=== PATIENT | male | born 1935 | race Native Hawaiian/Other Pacific Islander ===

== ENCOUNTER 2019-10-13 12:10 | Inpatient (IN) | payer MEDICAID, MEDICARE, OTHER ==
[~2019-10-13] VITALS: Ht 165.1 cm; Wt 58.0 kg
[~2019-10-13 12:10] MED LIST: AMLO1TAB12 PO; ATOR40TA28 PO; LORA10TA7 PO; TAMS-13 PO
[2019-10-13] MEDS ORDERED: ALBUTEROL SULFATE 5 MG/ML 20 ML NEB SOLN [BULK] NEB ONE ×2 (12:45→15:30)
[2019-10-13] MEDS ORDERED: MethylPREDNISolone SOD SUCC 125 MG/2 ML VIAL IVP ONE ×2 (12:45→20:45)
[2019-10-13] MEDS ORDERED: IPRATROPIUM BROMIDE 0.5 MG/2.5 ML NEB SOLUTION NEB ONE ×3 (12:45→20:45)
[2019-10-13] MEDS ORDERED: PredniSONE 20 MG TABLET PO ONE (12:45)
[2019-10-13] MEDS ORDERED: 0.9% SODIUM CHLORIDE 5 ML NEB SOLUTION NEB ONE ×2 (12:54→16:11)
[2019-10-13 16:52] LABS: BASOPHILS % (AUTO) 0.9 % (0.0-2.0); EOSINOPHILS % (AUTO) 3.1 % (1.0-6.0); HEMATOCRIT 43.4 % (41-53); HEMOGLOBIN 14.6 g/dL (13.5-17.5); LYMPHOCYTES # (AUTO) 0.8 K/uL (1.0-4.8); LYMPHOCYTES % (AUTO) 12.2 % (22.0-44.0); MEAN CORPUSCULAR HEMOGLOBIN 31.2 pg (26.0-34.0); MEAN CORPUSCULAR HGB CONC 33.5 G/dL (31.0-37.0); MEAN CORPUSCULAR VOLUME 93 fL (80-100); MONOCYTES # (AUTO) 0.4 K/uL (0.1-1.0); MONOCYTES % (AUTO) 6.5 % (2.0-9.0); NEUTROPHILS # (AUTO) 4.9 K/uL (1.8-7.7); NEUTROPHILS % (AUTO) 77.3 % (40.0-70.0); PLATELET COUNT (AUTO) 369 K/uL (150-450); RED BLOOD CELL COUNT(AUTO) 4.67 MIL/uL (4.50-5.90); RED CELL DISTRIBUTION WIDTH 13.3 % (11.5-14.5)
[2019-10-13 17:04] LABS: PROTHROMBIN TIME 10.2 SEC (9.4-11.6)
[2019-10-13 17:05] LABS: CALCIUM, TOTAL 9.7 mg/dL (8.8-10.5); CREATININE 1.16 mg/dL (0.60-1.30)
[2019-10-13 17:12] LABS: ALBUMIN 4.2 g/dL (3.4-5.0); BILIRUBIN,TOTAL 0.5 mg/dL (0.1-1.0); TOTAL PROTEIN, SERUM 7.5 g/dL (6.4-8.2)
[2019-10-13] MEDS ORDERED: POTASSIUM CHLORIDE 20 MEQ ER TABLET PO ONE (17:45)
[2019-10-13] MEDS ORDERED: ONDANSETRON HCL 4 MG/2 ML VIAL IVP PRN ×2 (18:30→21:00)
[2019-10-13] MEDS ORDERED: ACETAMINOPHEN 325 MG TABLET PO PRN ×2 (18:30→21:00)
[2019-10-13] MEDS ORDERED: 0.9% SODIUM CHLORIDE 10 ML SYRINGE IVP PRN ×2 (18:30→21:00)
[2019-10-13] MEDS ORDERED: ALBUTEROL SULFATE 2.5 MG/0.5 ML NEB SOLUTION NEB SCH (19:00)
[2019-10-13] MEDS ORDERED: IPRATROPIUM BROMIDE 0.5 MG/2.5 ML NEB SOLUTION NEB SCH (19:00)
[2019-10-13] MEDS ORDERED: ALBUTEROL SULFATE 2.5 MG/0.5 ML NEB SOLUTION NEB ONE (20:45)
[2019-10-13] MEDS ORDERED: MAGNESIUM HYDROXIDE SUSPENSION 30 ML UDCUP PO PRN (21:00)
[2019-10-13] MEDS: DOCUSATE SODIUM 100 MG CAPSULE PO SCH (21:00)
[2019-10-13] MEDS ORDERED: OxyCODONE HCL/ACETAMINOPHEN 5-325 MG TABLET PO PRN ×2 (21:00)
[2019-10-13] MEDS ORDERED: POTASSIUM CHLORIDE 20 MEQ ER TABLET PO PRN (21:15)
[2019-10-13] MEDS ORDERED: ALBUTEROL SULFATE 2.5 MG/0.5 ML NEB SOLUTION NEB PRN (21:15)
[2019-10-13 23:01] VITALS: BP 129/69
[2019-10-14] MEDS: POTASSIUM CHL 10 MEQ/WATER 50 ML IV PRN ×3 (01:26→04:02)
[2019-10-14] MEDS: ALBUTEROL SULFATE 2.5 MG/0.5 ML NEB SOLUTION NEB SCH ×4 (02:33→20:00)
[2019-10-14] MEDS: IPRATROPIUM BROMIDE 0.5 MG/2.5 ML NEB SOLUTION NEB SCH ×4 (02:33→20:00)
[2019-10-14 04:31] VITALS: BP 139/72
[2019-10-14 08:29] VITALS: BP 127/68
[2019-10-14] MEDS ORDERED: MethylPREDNISolone SOD SUCC 125 MG/2 ML VIAL IVP SCH (09:00)
[2019-10-14] MEDS ORDERED: [UNRECOGNIZED DRUG - OTHER] PO SCH (09:00)
[2019-10-14] MEDS ORDERED: LORATADINE 10 MG TABLET PO SCH (09:00)
[2019-10-14] MEDS: DOCUSATE SODIUM 100 MG CAPSULE PO SCH ×2 (09:00→21:00)
[2019-10-14] MEDS: ATORVASTATIN CALCIUM 40 MG TABLET PO SCH (09:28)
[2019-10-14] MEDS: AmLODIPine BESYLATE 5 MG TABLET PO SCH (09:28)
[2019-10-14] MEDS: VALSARTAN 80 MG TABLET PO SCH (09:28)
[2019-10-14] MEDS: TAMSULOSIN HCL 0.4 MG CAPSULE PO SCH (09:28)
[2019-10-14] MEDS: FAMOTIDINE 10 MG/ML 2 ML VIAL IVP SCH (09:28)
[2019-10-14] MEDS: MONTELUKAST SODIUM 10 MG TABLET PO SCH (11:40)
[2019-10-14 11:49] LABS: BASOPHILS % (AUTO) 0.2 % (0.0-2.0); EOSINOPHILS % (AUTO) 0 % (1.0-6.0); HEMATOCRIT 42.8 % (41-53); HEMOGLOBIN 14.2 g/dL (13.5-17.5); LYMPHOCYTES # (AUTO) 0.2 K/uL (1.0-4.8); LYMPHOCYTES % (AUTO) 4.4 % (22.0-44.0); MEAN CORPUSCULAR HGB CONC 33.3 G/dL (31.0-37.0); MEAN CORPUSCULAR VOLUME 93 fL (80-100); MONOCYTES % (AUTO) 0.6 % (2.0-9.0); NEUTROPHILS # (AUTO) 5.3 K/uL (1.8-7.7); PLATELET COUNT (AUTO) 369 K/uL (150-450); RED CELL DISTRIBUTION WIDTH 13.3 % (11.5-14.5)
[2019-10-14 11:51] LABS: NEUTROPHILS % (AUTO) 94.8 % (40.0-70.0)
[2019-10-14 12:09] VITALS: BP 136/62
[2019-10-14 12:15] LABS: ALANINE AMINOTRANSFERASE 27 U/L (12-78); ALBUMIN 3.8 g/dL (3.4-5.0); ALKALINE PHOSPHATASE 71 U/L (46-116); ANION GAP 10 mmol/L (8-16); ASPARTATE AMINOTRANSFERASE 24 U/L (15-37); CALCIUM, TOTAL 9.6 mg/dL (8.8-10.5); CARBON DIOXIDE 24 mmol/L (22-29); CHLORIDE 104 mmol/L (98-107); CREATININE 0.99 mg/dL (0.60-1.30); GLOMERULAR FILTR. RATE CALC > 60 mL/min (>60); GLUCOSE,RANDOM 142 mg/dL (70-110); POTASSIUM 4.4 mmol/L (3.5-5.1); SODIUM SERUM 138 mmol/L (136-145); TOTAL PROTEIN, SERUM 7.1 g/dL (6.4-8.2); UREA NITROGEN, BLOOD 12 mg/dL (7-18)
[2019-10-14 12:37] LABS: BILIRUBIN,TOTAL 0.3 mg/dL (0.1-1.0)
[2019-10-14] MEDS: MethylPREDNISolone SOD SUCC 125 MG/2 ML VIAL IVP SCH ×2 (14:35→19:30)
[2019-10-14 15:13] VITALS: BP 119/65
[2019-10-14] MEDS: BENZONATATE 100 MG CAPSULE PO SCH (16:39)
[2019-10-14 19:58] VITALS: BP 123/66
[2019-10-14] MEDS: HEPARIN SODIUM,PORCINE 5,000 UNITS/ML VIAL SQ SCH (21:00)
[2019-10-14] MEDS: BUDESONIDE 0.5 MG/2 ML NEB SOLUTION NEB SCH (21:00)
[2019-10-14 23:44] VITALS: BP 134/66
[2019-10-15] MEDS: ALBUTEROL SULFATE 2.5 MG/0.5 ML NEB SOLUTION NEB SCH ×4 (02:00→19:25)
[2019-10-15] MEDS: IPRATROPIUM BROMIDE 0.5 MG/2.5 ML NEB SOLUTION NEB SCH ×4 (02:00→19:25)
[2019-10-15] MEDS: MethylPREDNISolone SOD SUCC 125 MG/2 ML VIAL IVP SCH ×6 (06:00→20:55)
[2019-10-15] MEDS: ATORVASTATIN CALCIUM 40 MG TABLET PO SCH (09:00)
[2019-10-15] MEDS: AmLODIPine BESYLATE 5 MG TABLET PO SCH (09:05)
[2019-10-15] MEDS: VALSARTAN 80 MG TABLET PO SCH (09:05)
[2019-10-15] MEDS: FAMOTIDINE 10 MG/ML 2 ML VIAL IVP SCH (09:06)
[2019-10-15] MEDS: DOCUSATE SODIUM 100 MG CAPSULE PO SCH ×2 (09:06→20:10)
[2019-10-15] MEDS: TAMSULOSIN HCL 0.4 MG CAPSULE PO SCH ×2 (09:07→09:23)
[2019-10-15] MEDS: MONTELUKAST SODIUM 10 MG TABLET PO SCH (09:08)
[2019-10-15] MEDS: HEPARIN SODIUM,PORCINE 5,000 UNITS/ML VIAL SQ SCH ×2 (09:21→20:15)
[2019-10-15] MEDS: BENZONATATE 100 MG CAPSULE PO SCH ×4 (09:25→20:55)
[2019-10-15] MEDS: BUDESONIDE 0.5 MG/2 ML NEB SOLUTION NEB SCH ×2 (09:56→19:25)
[2019-10-15 11:40] VITALS: BP 108/64
[2019-10-15 12:43] LABS: APPEARANCE,URINE CLEAR (CLEAR); BILIRUBIN,URINE NEGATIVE (NEGATIVE); GLUCOSE, URINE (UA) NEGATIVE (NEGATIVE); KETONES,URINE NEGATIVE (NEGATIVE); LEUKOCYTE ESTERASE ,URINE NEGATIVE (NEGATIVE); NITRATE,URINE NEGATIVE (NEGATIVE); OCCULT BLOOD,URINE NEGATIVE (NEGATIVE); PROTEIN,URINE NEGATIVE (NEGATIVE); UROBILINOGEN,URINE 0.2 mg/dL (<=1.0)
[2019-10-15 15:36] VITALS: BP 117/71
[2019-10-15 19:48] VITALS: BP 131/60
[2019-10-16] MEDS: IPRATROPIUM BROMIDE 0.5 MG/2.5 ML NEB SOLUTION NEB SCH ×4 (02:00→20:41)
[2019-10-16] MEDS: ALBUTEROL SULFATE 2.5 MG/0.5 ML NEB SOLUTION NEB SCH ×4 (02:00→20:41)
[2019-10-16] MEDS: MethylPREDNISolone SOD SUCC 125 MG/2 ML VIAL IVP SCH ×4 (06:40→20:57)
[2019-10-16 07:46] VITALS: BP 113/70
[2019-10-16] MEDS: VALSARTAN 80 MG TABLET PO SCH (08:45)
[2019-10-16] MEDS: FAMOTIDINE 10 MG/ML 2 ML VIAL IVP SCH (08:46)
[2019-10-16] MEDS: DOCUSATE SODIUM 100 MG CAPSULE PO SCH ×2 (08:46→19:43)
[2019-10-16] MEDS: HEPARIN SODIUM,PORCINE 5,000 UNITS/ML VIAL SQ SCH ×2 (08:46→19:43)
[2019-10-16] MEDS: MONTELUKAST SODIUM 10 MG TABLET PO SCH (08:46)
[2019-10-16] MEDS: BENZONATATE 100 MG CAPSULE PO SCH ×3 (08:46→20:57)
[2019-10-16] MEDS: TAMSULOSIN HCL 0.4 MG CAPSULE PO SCH (08:46)
[2019-10-16] MEDS: ATORVASTATIN CALCIUM 40 MG TABLET PO SCH (08:46)
[2019-10-16] MEDS: AmLODIPine BESYLATE 5 MG TABLET PO SCH (08:46)
[2019-10-16] MEDS: BUDESONIDE 0.5 MG/2 ML NEB SOLUTION NEB SCH ×2 (08:53→20:41)
[2019-10-16 11:59] VITALS: BP 125/56
[2019-10-16 16:27] VITALS: BP 115/62
[2019-10-16 19:29] VITALS: BP 130/69
[2019-10-17] MEDS: ALBUTEROL SULFATE 2.5 MG/0.5 ML NEB SOLUTION NEB SCH ×2 (02:00→10:00)
[2019-10-17] MEDS: IPRATROPIUM BROMIDE 0.5 MG/2.5 ML NEB SOLUTION NEB SCH ×2 (02:00→10:00)
[2019-10-17] MEDS: MethylPREDNISolone SOD SUCC 125 MG/2 ML VIAL IVP SCH (06:45)
[2019-10-17 07:27] VITALS: BP 128/77
[2019-10-17] MEDS: ATORVASTATIN CALCIUM 40 MG TABLET PO SCH (08:48)
[2019-10-17] MEDS: BENZONATATE 100 MG CAPSULE PO SCH (08:48)
[2019-10-17] MEDS: AmLODIPine BESYLATE 5 MG TABLET PO SCH (08:48)
[2019-10-17] MEDS: VALSARTAN 80 MG TABLET PO SCH (08:48)
[2019-10-17] MEDS: TAMSULOSIN HCL 0.4 MG CAPSULE PO SCH (08:48)
[2019-10-17] MEDS: FAMOTIDINE 10 MG/ML 2 ML VIAL IVP SCH (08:48)
[2019-10-17] MEDS: MONTELUKAST SODIUM 10 MG TABLET PO SCH (08:48)
[2019-10-17] MEDS: HEPARIN SODIUM,PORCINE 5,000 UNITS/ML VIAL SQ SCH (08:49)
[2019-10-17] MEDS: DOCUSATE SODIUM 100 MG CAPSULE PO SCH (08:49)
[2019-10-17] MEDS: BUDESONIDE 0.5 MG/2 ML NEB SOLUTION NEB SCH (10:00)
[2019-10-17] MEDS ORDERED: PRED20 PO ×2 (10:40→10:41)
[2019-10-17] MEDS ORDERED: PRED10 PO (10:41)
== END 2019-10-17 11:10 | disposition home or self-care (01) | DRG 189 ==
LOC: EMS 12:14 → 5S 19:54
PROVIDERS: ADMIT Internal Medicine; ATTEND Internal Medicine
DX: J96.21 Acute and chronic respiratory failure with hypoxia (principal); J45.901 Unspecified asthma with (acute) exacerbation; Z53.20 Procedure and treatment not carried out because of patient's decision for unspecified reasons; E78.00 Pure hypercholesterolemia, unspecified; E78.5 Hyperlipidemia, unspecified; I10 Essential (primary) hypertension; N40.0 Benign prostatic hyperplasia without lower urinary tract symptoms; Z82.49 Family history of ischemic heart disease and other diseases of the circulatory system; Z83.3 Family history of diabetes mellitus; Z87.891 Personal history of nicotine dependence; Z99.81 Dependence on supplemental oxygen
CPT/HCPCS: 84132; 93005; 94060; 94640; 94644; 94645; 94660; 99291; J1644; J2930; J3480; J3490

== ENCOUNTER 2019-12-09 20:48 | Emergency (ER) | payer MEDICARE, MEDICAID ==
[~2019-12-09] VITALS: Ht 165.1 cm; Wt 64.0 kg
[~2019-12-09 20:48] MED LIST changes: -LORA10TA7 PO; +PRED10 PO; +PRED20 PO
[2019-12-09] MEDS ORDERED: 0.9% SODIUM CHLORIDE 5 ML NEB SOLUTION NEB ONE ×2 (20:51→21:58)
[2019-12-09] MEDS ORDERED: ALBUTEROL SULFATE 5 MG/ML 20 ML NEB SOLN [BULK] NEB ONE ×2 (21:00→22:00)
[2019-12-09] MEDS ORDERED: IPRATROPIUM BROMIDE 0.5 MG/2.5 ML NEB SOLUTION NEB ONE (21:00)
[2019-12-09] MEDS ORDERED: ACETAMINOPHEN 325 MG TABLET PO PRN (21:45)
[2019-12-09] MEDS ORDERED: MethylPREDNISolone SOD SUCC 125 MG/2 ML VIAL IVP ONE (21:45)
[2019-12-09] MEDS ORDERED: FUROSEMIDE 40 MG/4 ML VIAL IVP ONE (22:00)
[2019-12-09] MEDS ORDERED: AZITHROMYCIN 500 MG/NS 250 ML IV SCH (22:00)
[2019-12-09 22:01] LABS: BASOPHILS % (AUTO) 0.6 % (0.0-2.0); EOSINOPHILS % (AUTO) 6.9 % (1.0-6.0); HEMATOCRIT 40.3 % (41-53); HEMOGLOBIN 13.6 g/dL (13.5-17.5); LYMPHOCYTES % (AUTO) 9.3 % (22.0-44.0); MEAN CORPUSCULAR HEMOGLOBIN 31.4 pg (26.0-34.0); MEAN CORPUSCULAR HGB CONC 33.8 G/dL (31.0-37.0); MEAN CORPUSCULAR VOLUME 93 fL (80-100); MONOCYTES # (AUTO) 0.6 K/uL (0.1-1.0); MONOCYTES % (AUTO) 5.6 % (2.0-9.0); NEUTROPHILS # (AUTO) 7.9 K/uL (1.8-7.7); NEUTROPHILS % (AUTO) 77.6 % (40.0-70.0); PLATELET COUNT (AUTO) 322 K/uL (150-450); RED BLOOD CELL COUNT(AUTO) 4.34 MIL/uL (4.50-5.90); RED CELL DISTRIBUTION WIDTH 13.6 % (11.5-14.5)
[2019-12-09 22:18] LABS: ALANINE AMINOTRANSFERASE 32 U/L (12-78); ALBUMIN 3.9 g/dL (3.4-5.0); ALKALINE PHOSPHATASE 87 U/L (46-116); ANION GAP 10 mmol/L (8-16); ASPARTATE AMINOTRANSFERASE 28 U/L (15-37); BILIRUBIN,TOTAL 0.4 mg/dL (0.1-1.0); CALCIUM, TOTAL 9.2 mg/dL (8.8-10.5); CARBON DIOXIDE 28 mmol/L (22-29); CHLORIDE 103 mmol/L (98-107); CREATININE 0.82 mg/dL (0.60-1.30); GLUCOSE,RANDOM 201 mg/dL (70-110); SODIUM SERUM 141 mmol/L (136-145); TOTAL PROTEIN, SERUM 7.1 g/dL (6.4-8.2); UREA NITROGEN, BLOOD 11 mg/dL (7-18)
[2019-12-09 22:29] LABS: GLOMERULAR FILTR. RATE CALC > 60 mL/min (>60)
[2019-12-09 22:33] LABS: B-TYPE NATRIURETIC PEPTIDE 44 pg/mL (0-100)
[2019-12-09 22:53] LABS: INFLUENZA TYPE A NEGATIVE FOR TYPE A (NEGATIVE); INFLUENZA TYPE B NEGATIVE FOR TYPE B (NEGATIVE)
[2019-12-09] MEDS ORDERED: MONTELUKAST SODIUM 10 MG TABLET PO SCH (23:00)
[2019-12-09] MEDS: HEPARIN SODIUM,PORCINE 5,000 UNITS/ML VIAL SQ SCH (23:28)
[2019-12-10] MEDS ORDERED: POTASSIUM CHLORIDE 10% 40 MEQ/30 ML LIQUID UDCUP PO ONE (00:15)
[2019-12-10] MEDS: ALBUTEROL SULFATE 2.5 MG/0.5 ML NEB SOLUTION NEB PRN ×2 (00:59→08:02)
[2019-12-10] MEDS: IPRATROPIUM BROMIDE 0.5 MG/2.5 ML NEB SOLUTION NEB PRN ×2 (00:59→08:02)
[2019-12-10] MEDS ORDERED: ALBUTEROL SULFATE 5 MG/ML 20 ML NEB SOLN [BULK] NEB ONE (02:00)
[2019-12-10] MEDS ORDERED: 0.9% SODIUM CHLORIDE 5 ML NEB SOLUTION NEB ONE (02:01)
[2019-12-10] MEDS ORDERED: MethylPREDNISolone SOD SUCC 125 MG/2 ML VIAL IVP SCH (05:00)
[2019-12-10] MEDS: HEPARIN SODIUM,PORCINE 5,000 UNITS/ML VIAL SQ SCH ×2 (07:37→07:46)
[2019-12-10 08:30] VITALS: BP 136/69
[2019-12-10] MEDS ORDERED: DOCUSATE SODIUM 100 MG CAPSULE PO SCH (09:00)
[2019-12-10] MEDS ORDERED: FAMOTIDINE 20 MG TABLET PO SCH (09:00)
== END 2019-12-10 09:00 | disposition other institution (70) ==
LOC: EMS 20:48 → 5N 12-10 06:32 → UNDOADMIN 12-10 06:32 → EMS 12-10 09:00
DX: J45.901 Unspecified asthma with (acute) exacerbation (principal)
CPT/HCPCS: 36415; 71045; 80053; 83880; 84484; 85025; 87804; 93005; 94640; 94644; 94645; 94660; 96365; 96375; 96376; 99291; J0456 ×2; J1644; J1940; J2930 ×2